=== PATIENT | male | born 1950 | race Two or more races ===

== ENCOUNTER 2023-01-07 12:40 | Inpatient (IN) | payer OTHER ==
[~2023-01-07] VITALS: Ht 182.9 cm; Wt 98.1 kg
[2023-01-07] MEDS ORDERED: DEXTROSE (50%) 50ML SYRG IV PRN (15:15)
[2023-01-07] MEDS ORDERED: MORPHINE SULFATE INJ 2 MG/ml SYRG IV PRN (15:15)
[2023-01-07] MEDS ORDERED: ONDANSETRON HCL 4 MG/2 ML VIAL IV PRN (15:15)
[2023-01-07] MEDS ORDERED: NITROGLYCERIN 0.4 MG SL TAB SL PRN (15:15)
[2023-01-07] MEDS ORDERED: GLIP10TA9 PO (15:22)
[2023-01-07] MEDS ORDERED: ASPI-325 PO (15:22)
[2023-01-07] MEDS ORDERED: CYA100I PO (15:25)
[2023-01-07] MEDS ORDERED: LEVO75CA3 PO (15:25)
[2023-01-07] MEDS ORDERED: CYA100I IM (15:25)
[2023-01-07] MEDS ORDERED: LISI20TA56 PO (15:25)
[2023-01-07] MEDS ORDERED: CHOL20007 PO (15:25)
[2023-01-07] MEDS ORDERED: METF-370 PO (15:25)
[2023-01-07 15:26] VITALS: BP 148/83; PULSE 88; RESP 17; TEMP 97.8; O2SAT 98
[2023-01-07] MEDS: InsuLIN REG 1unit/0.01ml Soln (100units/ml) SC SCH ×2 (16:30→22:00)
[2023-01-07] MEDS: ACCU-CHEK COMFORT CURVE STRIP VI SCH ×2 (16:30→22:55)
[2023-01-07 20:00] VITALS: BP 111/55; PULSE 59; PULSE 61; RESP 18; TEMP 98.1
[2023-01-07 22:00] VITALS: BP 111/55; PULSE 60; RESP 18; TEMP 98.1; O2SAT 96
[2023-01-07] MEDS: METOPROLOL TARTRATE 25 MG TAB PO SCH (22:00)
[2023-01-07] MEDS: ATORVASTATIN 20 MG TAB PO SCH (22:17)
[2023-01-07] MEDS: PANTOPRAZOLE 40 MG/10 ML VIAL INJ IV SCH (22:18)
[2023-01-08] VITALS (8 sets, daily range): BP systolic 111–140; BP diastolic 54–71; PULSE 52–80; RESP 16–20; TEMP 97.7–98.3; O2SAT 96–98
[2023-01-08 00:43] LABS: Urine Bacteria NONE SEEN /hpf (None Seen); Urine Blood TRACE /uL (Negative); Urine Clarity Clear (Clear); Urine Color Yellow (Yellow); Urine Hyaline Cast FEW /lpf (0 - 2); Urine Mucus FEW (None Seen); Urine Protein, UAD Negative (Negative); Urine Specific Gravity 1.019 (1.001-1.035); Urine Urobilinogen Normal (Negative); Urine WBC 1 /hpf (0 - 3)
[2023-01-08 04:51] LABS: Basophils # (auto) 0 10 ^3/uL (0-0.2); Basophils % (auto) 0.6 % (0.0-2.0); Eosinophils # (auto) 0.3 10 ^3/uL (0-0.8); Eosinophils % (auto) 3.9 % (0.0-7.0); Hematocrit 35.3 % (41.0-53.0); Hemoglobin 11.7 g/dL (13.5-17.5); Lymphocytes # (auto) 2.3 10 ^3/uL (0.4-5.4); Lymphocytes % (auto) 32.6 % (10.0-50.0); Mean Corpuscular Hemoglobin 28.3 pg (28.0-32.0); Mean Corpuscular Hgb Conc. 33.2 g/dL (32.0-36.0); Mean Corpuscular Volume 85.2 fL (80.0-100.0); Monocytes # (auto) 0.6 10 ^3/uL (0-1.3); Monocytes % (auto) 8.4 % (0.0-12.0); Neutrophils # (auto) 3.9 10 ^3/uL (1.6-8.6); Neutrophils % (auto) 54.5 % (37.0-80.0); Nucleated Red Blood Cells % 0.1 %; Red Blood Cells 4.14 10^6/uL (4.5-5.90); White Blood Cell 7.2 10^3/uL (4.4-10.8)
[2023-01-08 04:59] LABS: Potassium 3.8 mmol/L (3.5-5.1)
[2023-01-08 05:07] LABS: Albumin 3.4 g/dL (3.4-5.0); BUN/Creatinine Ratio 15.2 (10.0-20.0); Bilirubin, Total 1.3 mg/dL (0.2-1.0); Calcium 8.4 mg/dL (8.5-10.1); Total Protein 6.4 g/dL (6.4-8.2)
[2023-01-08] MEDS: InsuLIN REG 1unit/0.01ml Soln (100units/ml) SC SCH ×4 (07:00→21:55)
[2023-01-08] MEDS: METOPROLOL TARTRATE 25 MG TAB PO SCH ×2 (09:29→22:00)
[2023-01-08] MEDS: PANTOPRAZOLE 40 MG/10 ML VIAL INJ IV SCH ×2 (09:29→21:57)
[2023-01-08] MEDS: ENOXAPARIN SOD 40 MG/0.4 ML SYRINGE SC SCH (09:30)
[2023-01-08] MEDS: ASPirin-EC 81 mg tab PO SCH (09:30)
[2023-01-08] MEDS: LISINOPRIL 10 MG TAB PO SCH (09:46)
[2023-01-08] MEDS: ACCU-CHEK COMFORT CURVE STRIP VI SCH ×4 (09:49→22:04)
[2023-01-08] MEDS: ATORVASTATIN 20 MG TAB PO SCH (21:56)
[2023-01-09] VITALS (15 sets, daily range): BP systolic 101–131; BP diastolic 53–67; PULSE 52–68; RESP 13–20; TEMP 97.4–98.6; O2SAT 92–100
[2023-01-09 06:02] LABS: INR 1.04 (0.9-1.15); Partial Thromboplastin Time 27.9 SEC (24.5-34.5); Prothrombin Time 10.9 sec (9.3-11.8)
[2023-01-09 06:04] LABS: Basophils # (auto) 0.1 10 ^3/uL (0-0.2); Basophils % (auto) 0.9 % (0.0-2.0); Eosinophils # (auto) 0.2 10 ^3/uL (0-0.8); Eosinophils % (auto) 3.6 % (0.0-7.0); Hematocrit 36.3 % (41.0-53.0); Mean Corpuscular Hemoglobin 28.4 pg (28.0-32.0); Mean Corpuscular Hgb Conc. 33.1 g/dL (32.0-36.0); Mean Corpuscular Volume 85.9 fL (80.0-100.0); Monocytes # (auto) 0.5 10 ^3/uL (0-1.3); Monocytes % (auto) 9.2 % (0.0-12.0); Neutrophils # (auto) 3.2 10 ^3/uL (1.6-8.6); Neutrophils % (auto) 53.3 % (37.0-80.0); Nucleated Red Blood Cells % 0.2 %; Red Blood Cells 4.22 10^6/uL (4.5-5.90); Red Cell Distribution Width 16.9 % (11.8-14.3); White Blood Cell 5.9 10^3/uL (4.4-10.8)
[2023-01-09 06:07] LABS: Potassium 4.1 mmol/L (3.5-5.1)
[2023-01-09 06:16] LABS: Albumin 3.3 g/dL (3.4-5.0); BUN/Creatinine Ratio 13.4 (10.0-20.0); Bilirubin, Total 1.5 mg/dL (0.2-1.0); Calcium 8.8 mg/dL (8.5-10.1); Total Protein 6.5 g/dL (6.4-8.2)
[2023-01-09] MEDS: InsuLIN REG 1unit/0.01ml Soln (100units/ml) SC SCH ×3 (06:28→18:04)
[2023-01-09] MEDS: ACCU-CHEK COMFORT CURVE STRIP VI SCH ×3 (06:28→18:02)
[2023-01-09] MEDS: ENOXAPARIN SOD 40 MG/0.4 ML SYRINGE SC SCH (09:00)
[2023-01-09] MEDS: ASPirin-EC 81 mg tab PO SCH (09:00)
[2023-01-09] MEDS: PANTOPRAZOLE 40 MG/10 ML VIAL INJ IV SCH (09:24)
[2023-01-09] MEDS: LISINOPRIL 10 MG TAB PO SCH (09:24)
[2023-01-09] MEDS: METOPROLOL TARTRATE 25 MG TAB PO SCH (09:24)
[2023-01-09] MEDS ORDERED: IOHEXOL 350 MG/ML 100ML IJ ONE (14:04)
[2023-01-09] MEDS ORDERED: LIDOCAINE 2%HCL (LOCAL ANESTH.) INJ 20ML MDV ONE (14:04)
[2023-01-09] MEDS ORDERED: ANGIOMAX 250 MG VIAL IV ONE (14:06)
[2023-01-09] MEDS ORDERED: VERAPAMIL 2.5MG/ML INJ 2ML VIAL IV ONE (14:06)
[2023-01-09] MEDS ORDERED: SODIUM CHL 0.9% 0 ML ONE (14:07)
[2023-01-09] MEDS ORDERED: fentaNYL CITRATE 100 MCG/2 ML VL ONE (14:07)
[2023-01-09] MEDS ORDERED: MIDAZOLAM HCL 2MG/2ML 2ml VIAL (1mg/ml) ONE (14:07)
[2023-01-09] MEDS ORDERED: HEPARIN SODIUM (PORCINE) 5000 UNITS/ML 1ML VIAL ONE (14:49)
[2023-01-09] MEDS ORDERED: ATOR20TA50 PO (15:41)
[2023-01-10] MEDS ORDERED: PANTOPRAZOLE 40 MG TAB PO SCH (10:00)
== END 2023-01-09 19:30 | disposition home or self-care (01) | DRG 287 ==
LOC: TELE-WESTW 14:24
PROVIDERS: ADMIT Hospitalist; ATTEND Hospitalist
PROC: B2111ZZ Fluoroscopy of Multiple Coronary Arteries using Low Osmolar Contrast (ICD-10-PCS; principal; 2023-01-07)
PROC: 4A023N7 Measurement of Cardiac Sampling and Pressure, Left Heart, Percutaneous Approach (ICD-10-PCS; 2023-01-07)
DX: I25.110 Atherosclerotic heart disease of native coronary artery with unstable angina pectoris (principal); E11.9 Type 2 diabetes mellitus without complications; E78.5 Hyperlipidemia, unspecified; E66.9 Obesity, unspecified; I10 Essential (primary) hypertension; Z82.49 Family history of ischemic heart disease and other diseases of the circulatory system; Z80.9 Family history of malignant neoplasm, unspecified; Z79.82 Long term (current) use of aspirin; Z79.899 Other long term (current) drug therapy; Z68.29 Body mass index [BMI] 29.0-29.9, adult
CPT/HCPCS: 36415; 71045; 80053; 80061; 81001; 82962; 83036; 83690; 83880; 84443; 84484; 85025; 85610; 85730; 86850; 86900; 86901; 93005; 93306; 93458; 99152; C9113; G0378; J1815; J2250